=== PATIENT | female | born 1975 | race Caucasian/White ===

== ENCOUNTER 2017-07-30 19:56 | Emergency (ER) | payer SELFPAY ==
[~2017-07-30 19:56] MED LIST: AUGMENTIN PO; HYDR-3533 PO; METH4PAK PO; ULTR50TA PO
[2017-07-30 19:57] VITALS: BP 158/87; PULSE 87; RESP 16; TEMP 98; O2SAT 96
--- NOTE | 2017-07-30 20:40 | PD ---
HPI Chief Complaint: Pain: Acute or Chronic Time Seen by Provider: 20:22 Travel History International Travel<30 days: No Contact w/Intl Traveler<30days: No Traveled to known affect area: No History of Present Illness HPI 42-year-old white female presents to emergency department for evaluation of left knee pain after hyperextending her leg in a jolting fashion prior to coming in. She states that she just had arthroscopy on her left knee by Dr. Womack yesterday. She states that she has noticed some increasing pain after having the procedure done. She has been taken Lortab 7.5 for pain. She also goes to the methadone clinic and takes 200 mg daily. She has been advised to decrease her methadone and get into a normal pain management doctor. The patient states that she was just concerned that she may have reinjured herself by doing this action. Patient states that she has difficulty with weightbearing. She denies any pain in her thigh or calf. She denies any numbness or tingling. Pain is moderate but can be severe at times. History Past Medical Histgory Narrative Medical Chronic pain, substance abuse, left knee arthroscopy LMP: 2 YEARS AGO Menopausal: No Past Surgical History Narrative Surgical Left knee arthroscopy, Social History Alcohol Use: Yes (NORMALY SOCIALLY) Tobacco Use: Yes (1/2 PACK DAILY) Allergies-Medications (Allergen,Severity, Reaction): Coded Allergies: No Known Allergies (Verified Adverse Reaction, Unknown, 07/30/17) Reported Meds & Prescriptions Reported Meds & Active Scripts Active Ultram (Tramadol HCl) 50 Mg Tab 50 Mg PO Q6 PRN Lortab 5 mg/325 mg (Hydrocodone/Acetaminophen 5 mg/325 mg) 1 Tab 1 Tab PO Q6H PRN [augmentin 875/125] 1 Tab PO BID Take one tablet by mouth twice daily for 10-days Methylprednisolone 4 Mg Guerrero 4 Mg PO DIRECTED Review of Systems General / Constitutional: No: Fever Eyes: No: Visual changes HENT: No: Headaches Cardiovascular: No: Chest Pain or Discomfort Respiratory: No: Shortness of Breath Gastrointestinal: No: Abdominal Pain Genitourinary: No: Dysuria Musculoskeletal: Positive: Arthralgias, Limited ROM, Pain, No: Myalgias, Weakness Skin: No Rash Neurologic: No: Weakness Psychiatric: No: Depression Endocrine: No: Polydipsia Hematologic/Lymphatic: No: Easy Bruising Physical Exam Narrative GENERAL: This is a well-nourished, well-developed patient, in no apparent distress. SKIN: No rashes, ecchymoses or lesions. Warm and dry. HEAD: Atraumatic. Normocephalic. EYES: PERRL, EOMI, no discharge or injection. No scleral icterus. EARS: Clear NOSE: Nasal turbinates appear normal. THROAT: Mucosa pink and moist. Airway patent. NECK: Trachea midline. supple, moves head freely. LUNGS: Clear to auscultation. CV: Regular in rhythm. ABDOMEN: Soft nontender. EXT: No clubbing cyanosis or edema. Examination of left lower extremity reveals a knee immobilizer placed. This is removed. She has an Nicholas bandage on along with a bulky dressing. This is also removed. Her surgical site looks excellent. There is no drainage. No erythema. She has mild joint swelling. She has decreased range of motion due to pain. There is no tenderness in her thigh or calf. No Homans sign. She has excellent distal pulses. There is no erythema. Data Data Last Documented VS Vital Signs Date Time Temp Pulse Resp B/P (MAP) Pulse Ox O2 Delivery O2 Flow Rate FiO2 07/30/17 19:57 98.0 87 16 158/87 (110) 96 Room Air MDM Medical Screen Exam Complete: Yes Emergency Medical Condition: No Differential Diagnosis MDM: High Differential diagnoses: Fracture, sprain, strain, dislocation, contusion, neurovascular injury Narrative Course A medical screening exam was performed: At the time of evaluation the presenting medical condition was determined not to be of an emergent nature. The patient was given the option of receiving additional care, but declined. Patient was given options for additional community resources from which to obtain care. The Patient Has Been advised to seek medical attention for their presenting complaint. The patient has been advised to return to the ER at any time if an emergent condition develops. Primary Impression: Encounter for medical screening examination Condition: Akin Nicole Jul 30, 2017 20:40
== END 2017-07-30 20:43 | disposition left against medical advice (07) ==
LOC: NEPD 19:56
DX: M25.562 Pain in left knee (principal)
CPT/HCPCS: 99281